=== PATIENT | male | born 1950 | race Caucasian/White ===

== ENCOUNTER 2016-11-27 05:34 | Inpatient (IN) | payer OTHER ==
[~2016-11-27 05:34] MED LIST: ASPIRIN EC81 MG PO; CARDIZEM CD120 M1 PO; CELEBREX200 M1 PO; CHROMIUM PIC1000 MC1 PO; CINNAMON500 M1 PO; GLUCOPHAGE500 M3 PO; HYDROCHLOROTHIA25 M1 PO; HYDROCODON-ACE1 EA16 PO; LOPRESSOR50 M1 PO; MULTIVITAMIN; SUPER B-50 COM1 EACH PO; TYLENOL325 M2 PO; VITAMIN C1000 M1 PO; VITAMIN D1000 UNI2 PO; [UNRECOGNIZED DRUG - CODE] PO
[2016-11-28 05:23] LABS: BASO % 0.1 % (0-2); HCT-HEMATOCRIT 33.7 % (36.0-53.5); HGB-HEMOGLOBIN 12.1 gm/dl (13.5-17.0); IMMATURE GRANULOCYTES ABSOLUTE 0.07 tho/cmm (0-0.03); IMMATURE GRANULOCYTES PERCENT 0.5 % (0-0.3); LYMPH % 10.1 % (20-45); LYMPH ABSOLUTE COUNT 1.6 tho/cmm (0.8-4.5); MCH (MEAN CORPUSCULAR HGB) 31.2 pg (28.0-32.0); MCHC MEAN CORPUSCULAR HGB CONC 35.9 % (32.0-36.0); MCV (MEAN CELL VOLUME) 86.9 fl (82.0-96.0); MEAN PLATELET VOLUME 10.4 cmc (9.4-12.4); MONO % 13.3 % (0-12); NEUTROPHIL ABSOLUTE COUNT 11.7 tho/cmm (1.6-8.0); NEUTROPHIL-AUTOMATED 11.7 tho/cmm (1.6-8.0); PLATELET COUNT 231 tho/cmm (150-450); RED BLOOD COUNT 3.88 mil/cmm (4.40-5.70); RED CELL DISTRIBUTION WIDTH 12.1 % (12.4-16.4); WHITE BLOOD COUNT 15.3 tho/cmm (4.0-10.0)
[2016-11-28 05:28] LABS: ANION GAP 13 mmol/L (0-20); BLOOD UREA NITROGEN 16 mg/dl (6-24); CALCIUM 9.4 mg/dl (8.5-10.5); CARBON DIOXIDE-VENOUS 25 mmol/L (22-32); CHLORIDE 104 mmol/l (96-110); CREATININE 0.81 mg/dl (0.60-1.30); GLUCOSE 171 mg/dL (70-110); POTASSIUM 4.5 mmol/L (3.7-5.1); SODIUM 137 mmol/L (135-145); eGFR VALUE FOR BLACK >90 mL/Min
[2016-11-29] MEDS ORDERED: ROBAXIN-750750 M1 PO (10:47)
[2016-11-29] MEDS ORDERED: NORCO 5-325 TA1 EACH PO (10:54)
[2016-11-29] MEDS ORDERED: SENOKOT-S TABL1 EACH PO (10:57)
== END 2016-11-29 12:59 | DRG 460 ==
LOC: SHSA 05:34 → ORE 07:32 → PACU 11:42 → 5EC 14:05
PROVIDERS: Hospitalist; ADMIT Neurological Surgery
DX: M48.06 Spinal stenosis, lumbar region (principal); I10 Essential (primary) hypertension; M43.16 Spondylolisthesis, lumbar region; M54.16 Radiculopathy, lumbar region; E11.9 Type 2 diabetes mellitus without complications; K58.9 Irritable bowel syndrome, unspecified; E78.5 Hyperlipidemia, unspecified
CPT/HCPCS: C1713; J0690; J1170; J1815; J2405; J2800; J3010; J3370